=== PATIENT | female | born 1960 | race Two or more races ===

== ENCOUNTER → 2017-01-31 | Outpatient (CLI) | payer OTHER ==
[~2017-01-31] MED LIST: ESTR1TAB PO; HYDR12.57 PO; LISI-519 PO; RANI150C PO; SPIR25TA PO; TRAZ50TA12 PO; VENTAER INH; VITATAB43 PO
[2017-01-31 11:12] LABS: ANION GAP 10 MEQ/L (5-15); AST (GOT) 17 U/L (15-37); BICARBONATE 27.5 MEQ/L (21.0-32.0); BLOOD UREA NITROGEN 10 MG/DL (7-18); CHLORIDE 103 MEQ/L (98-107); GLOMERULAR FILTRATION RATE 51 ML/MIN (>89); GLUCOSE,FASTING 92 MG/DL (74-99); POTASSIUM 4.3 MEQ/L (3.5-5.1); SODIUM (NA) 140 MEQ/L (136-145)
[2017-01-31 11:14] LABS: AUTOMATED NEUTROPHIL # 3.8 TH/MM3 (1.8-7.7); BASOPHIL % 0.4 % (0.0-2.0); EOSINOPHIL # 0.2 TH/MM3 (0-0.4); EOSINOPHIL % 3.2 % (0.0-4.0); HEMATOCRIT 40.3 % (35.0-46.0); HEMO FLAGS DIFF FINAL; LYMPH % 33.4 % (9.0-44.0); LYMPHOCYTE # 2.2 TH/MM3 (1.0-4.8); MEAN CELL VOLUME 88.2 FL (80.0-100.0); MEAN CORPUSCULAR HEMOGLOBIN 30.1 PG (27.0-34.0); MEAN CORPUSCULAR HGB CONC 34.2 % (32.0-36.0); MONO % 6.6 % (0.0-8.0); NEUT % 56.4 % (16.0-70.0); PLATELET COUNT 311 TH/MM3 (150-450); RED BLOOD COUNT 4.57 MIL/MM3 (4.00-5.30); RED CELL DISTRIBUTION WIDTH 13.5 % (11.6-17.2); WHITE BLOOD COUNT 6.6 TH/MM3 (4.0-11.0)
[2017-01-31 11:23] LABS: ALKALINE PHOSPHATASE 123 U/L (45-117); ALT (GPT) 20 U/L (10-53); HDL CHOLESTEROL 62.7 MG/DL (40.0-60.0); LDL CHOLESTEROL 88 MG/DL (0-99); TOTAL BILIRUBIN ADULT 0.5 MG/DL (0.2-1.0)
== END ==
LOC: CLAB 10:32
PROVIDERS: ATTEND Family Medicine
DX: E78.1 Pure hyperglyceridemia (principal); N95.1 Menopausal and female climacteric states; J45.909 Unspecified asthma, uncomplicated; K21.9 Gastro-esophageal reflux disease without esophagitis
CPT/HCPCS: 36415; 80053; 80061; 84443; 85025

== ENCOUNTER 2017-10-07 14:58 | Emergency (ER) | payer OTHER ==
[~2017-10-07] VITALS: Ht 170.2 cm; Wt 79.5 kg
[~2017-10-07 14:58] MED LIST changes: +CIPR-9 PO; -HYDR12.57 PO; -SPIR25TA PO
[2017-10-07 15:00] VITALS: BP 130/79; PULSE 82; RESP 16; TEMP 97.7; O2SAT 100
[2017-10-07] MEDS ORDERED: PROMSYP3 PO (16:33)
[2017-10-07] MEDS ORDERED: NAPR500T2 PO (16:33)
[2017-10-07] MEDS ORDERED: LORA-520 PO (16:33)
--- NOTE | 2017-10-07 16:33 | PD ---
HPI Chief Complaint: ENT Complaint Time Seen by Provider: 16:19 Travel History International Travel<30 days: No Contact w/Intl Traveler<30days: No Traveled to known affect area: No History of Present Illness HPI This is a 57-year-old female who presents to the emergency department with left ear pain is been going on for 2 weeks, constant, moderate severity described as a soreness associated with some throat pain and some cough productive with white sputum. She says she's had some subjective fevers and chills. She says she completed an antibiotic that was prescribed to her by her primary care physician but she doesn't know what it was. PFSH Past Medical History Anemia: Yes Asthma: Yes Anxiety: Yes Depression: Yes Diminished Hearing: No GERD: Yes Hiatal Hernia: Yes Migraines: Yes Tetanus Vaccination: Unknown Influenza Vaccination: No ?: Not Menopausal: Yes : 5 Para: 4 Miscarriage: 0 : 1 Past Surgical History Appendectomy: Yes Hysterectomy: Yes Social History Alcohol Use: No Tobacco Use: No Substance Use: No Allergies-Medications (Allergen,Severity, Reaction): Coded Allergies: fire ant (Unverified Allergy, Severe, Itching, 10/07/17) codeine (Unverified Allergy, Mild, STOMACH AND ITCHING, 10/07/17) penicillin G (Unverified Allergy, Mild, Itching, 10/07/17) Reported Meds & Prescriptions Reported Meds & Active Scripts Active Lisinopril 5 Mg Tab 5 Mg PO DAILY Trazodone (Trazodone HCl) 50 Mg Tab 50 Mg PO HS Ranitidine (Ranitidine HCl) 150 Mg Cap 150 Mg PO BID Estradiol 1 Mg Tab 1 Mg PO DAILY Ventolin Hfa 18 GM Inh (Albuterol Sulfate) 90 Mcg/Act Aer 2 Puff INH Q4H PRN Review of Systems Except as stated in HPI: all other systems reviewed are Neg Physical Exam Narrative GENERAL:Well appearing, no acute distress SKIN: Focused skin assessment warm and dry. HEAD: Atraumatic. Normocephalic. EYES: Pupils equal and round. No injection or drainage. ENT: Posterior pharyngeal erythema with no exudates. No cervical lymphadenopathy. Some fluid behind the left tympanic membrane. No erythema or dullness. NECK: Trachea midline. CARDIOVASCULAR: Regular rate and rhythm. No murmur appreciated. RESPIRATORY: Clear to auscultation. Breath sounds equal bilaterally. GASTROINTESTINAL: Abdomen soft, non-tender, nondistended. MUSCULOSKELETAL: No obvious deformities. NEUROLOGICAL: Awake and alert. No obvious cranial nerve deficits. Moving all extremities. PSYCHIATRIC: Appropriate mood and affect; insight and judgment normal. Data Data Last Documented VS Vital Signs Date Time Temp Pulse Resp B/P (MAP) Pulse Ox O2 Delivery O2 Flow Rate FiO2 10/07/17 15:00 97.7 82 16 130/79 (96) 100 Room Air [facility] Medical Decision Making Medical Screen Exam Complete: Yes Emergency Medical Condition: Yes Differential Diagnosis Viral upper respiratory infection, pharyngitis, sinusitis, allergies Narrative Course This is a very well-appearing 57-year-old female who presents to the emergency department for left-sided ear pain and throat pain. She has some fluid behind the left tympanic membrane and some erythema in the posterior pharynx. She otherwise appears very well. She's completed antibiotics and she doesn't feel any better. I think she might benefit from a trial of treatment with loratadine. I don't think she requires any additional diagnostics and I don't think this reflects an emergency. Patient can be discharged home. Diagnosis Primary Impression: Sinus congestion Patient Instructions: General Instructions Additional Instructions: If you develop severe chest pain, shortness of breath, sweating, lightheadedness , dizziness or difficulty breathing return to the emergency department immediately. Followup with your primary care physician in 2-3 days if your symptoms are not resolved. Med/Other Pt SpecificInfo: Prescription(s) given Scripts Dextromethorphan-Promethazine Liq (Promethazine-Dextromethorphan Liq) 6.25-15 Mg /5 Ml Syrp 5 ML PO Q6HR Y for COUGH, #100 ML Prov: Shira Atkinson MD 10/07/17 Naproxen (Naproxen) 500 Mg Tab 500 MG PO BID Y for PAIN SCALE 4 TO 10, #20 TAB 0 Refills Prov: Shira Atkinson MD 10/07/17 Loratadine (Allergy) 10 Mg Tab 1 TAB PO DAILY, #30 Prov: Shira Atkinson MD 10/07/17 Disposition: 01 DISCHARGE HOME Condition: Stable Shira Atkinson MD Oct 07, 2017 16:33
== END 2017-10-07 16:35 | disposition home or self-care (01) ==
LOC: NEPK 14:58 → NETRI 16:35
DX: R09.81 Nasal congestion (principal); H92.02 Otalgia, left ear; R07.0 Pain in throat; R05 Cough; D64.9 Anemia, unspecified; J45.909 Unspecified asthma, uncomplicated; K21.9 Gastro-esophageal reflux disease without esophagitis; F41.9 Anxiety disorder, unspecified; F32.9 Major depressive disorder, single episode, unspecified
CPT/HCPCS: 99284

== ENCOUNTER 2018-01-18 10:43 | Emergency (ER) | payer OTHER ==
[~2018-01-18] VITALS: Ht 167.6 cm; Wt 79.5 kg
[~2018-01-18 10:43] MED LIST changes: -CIPR-9 PO; +LORA-520 PO; +NAPR500T2 PO; +PROMSYP3 PO; -VITATAB43 PO
[2018-01-18 10:48] VITALS: BP 144/75; PULSE 81; RESP 18; TEMP 98.3; O2SAT 100
--- NOTE | 2018-01-18 11:54 | PD ---
HPI Chief Complaint: ENT Complaint Time Seen by Provider: 11:52 Travel History International Travel<30 days: No Contact w/Intl Traveler<30days: No Traveled to known affect area: No History of Present Illness HPI c/o sore throat for a week, 03/28, over left side of throat. states more painful when swallowing, also accompanied by body aches, but no rash. denies any alleviating factors. also denies assoc factors such as fever/pryor/cp/abdpain/ n/v/d/ all:codeine, pcn pmhx/pshx: migraine,asthma, hiatal hernia, anemia, anxiety, gerd, appendectomy , hysterectomy. PFSH Past Medical History Anemia: Yes Asthma: Yes Anxiety: Yes Depression: Yes Diminished Hearing: No GERD: Yes Hiatal Hernia: Yes Migraines: Yes Menopausal: Yes : 5 Para: 4 Miscarriage: 0 : 1 Past Surgical History Appendectomy: Yes Hysterectomy: Yes Social History Alcohol Use: No Tobacco Use: No Substance Use: No Allergies-Medications (Allergen,Severity, Reaction): Coded Allergies: fire ant (Verified Allergy, Severe, Itching, 01/18/18) codeine (Verified Allergy, Mild, STOMACH AND ITCHING, 01/18/18) penicillin G (Verified Allergy, Mild, Itching, 01/18/18) Reported Meds & Prescriptions Reported Meds & Active Scripts Active Lisinopril 5 Mg Tab 5 Mg PO DAILY Trazodone (Trazodone HCl) 50 Mg Tab 50 Mg PO HS Ranitidine (Ranitidine HCl) 150 Mg Cap 150 Mg PO BID Estradiol 1 Mg Tab 1 Mg PO DAILY Review of Systems General / Constitutional: No: Fever Eyes: No: Visual changes HENT: Positive: Sore Throat Cardiovascular: No: Chest Pain or Discomfort Respiratory: No: Shortness of Breath Gastrointestinal: No: Abdominal Pain Genitourinary: No: Dysuria Musculoskeletal: No: Pain Skin: No Rash Neurologic: No: Weakness Psychiatric: No: Depression Endocrine: No: Polydipsia Hematologic/Lymphatic: No: Easy Bruising Physical Exam Narrative GENERAL: SKIN: Warm and dry. HEAD: Atraumatic. Normocephalic. EYES: Pupils equal and round. No scleral icterus. No injection or drainage. ENT: No nasal bleeding or discharge. Mucous membranes pink and moist. NECK: Trachea midline. No JVD. CARDIOVASCULAR: Regular rate and rhythm. RESPIRATORY: No accessory muscle use. Clear to auscultation. Breath sounds equal bilaterally. GASTROINTESTINAL: Abdomen soft, non-tender, nondistended. Hepatic and splenic margins not palpable. MUSCULOSKELETAL: Extremities without clubbing, cyanosis, or edema. No obvious deformities. NEUROLOGICAL: Awake and alert. No obvious cranial nerve deficits. Motor grossly within normal limits. Five out of 5 muscle strength in the arms and legs. Normal speech. PSYCHIATRIC: Appropriate mood and affect; insight and judgment normal. 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 Diagnosis Primary Impression: Acute bacterial pharyngitis Patient Instructions: General Instructions, Pharyngitis (ED) Scripts Lidocaine Viscous Liq (Lidocaine Viscous Liq) 2 % Liqd 5 ML SWISH-SPIT QID Y for PAIN, #160 BOTTLE 0 Refills Prov: Michael Walker MD 01/18/18 Sulfamethoxazole-Trimethoprim (Bactrim DS) 800-160 Mg Tab 1 TAB PO BID for Infection, #14 TAB 0 Refills Prov: Michael Walker MD 01/18/18 Disposition: 01 DISCHARGE HOME Condition: Stable Michael Walker MD Jan 18, 2018 11:54
[2018-01-18] MEDS ORDERED: BACT800T5 PO (12:11)
[2018-01-18] MEDS ORDERED: LIDO1SOL8 SWISH-SPIT (12:11)
[2018-01-18] MEDS ORDERED: SULFAMETHOXAZOLE-TRIMETHOPRIM 400-80 MG TAB PO ONE (12:15)
== END 2018-01-18 13:15 | disposition home or self-care (01) ==
LOC: NEPD 10:43
DX: J02.8 Acute pharyngitis due to other specified organisms (principal); B96.89 Other specified bacterial agents as the cause of diseases classified elsewhere; J45.909 Unspecified asthma, uncomplicated; F41.9 Anxiety disorder, unspecified; F32.9 Major depressive disorder, single episode, unspecified; Z88.0 Allergy status to penicillin; Z88.5 Allergy status to narcotic agent; Z79.899 Other long term (current) drug therapy
CPT/HCPCS: 87081; 87804; 87880; 99283